=== PATIENT | female | born 1990 | race Two or more races ===

== ENCOUNTER 2021-03-20 10:00 | Outpatient (CLI) | payer OTHER | END 2021-03-20 10:11 | disposition home or self-care (01) | LOC: RX STUDY 10:00 | DX: Q51.818 Other congenital malformations of uterus (principal) ==

== ENCOUNTER → 2024-08-24 | Outpatient (CLI) | payer OTHER | END | disposition home or self-care (01) | LOC: SONOGRAMA 11:41 | DX: Z31.41 Encounter for fertility testing (principal) ==